=== PATIENT | male | born 1935 | race Caucasian/White ===

== ENCOUNTER 2021-10-06 10:38 | Inpatient (IN) ==
[2021-10-06 12:06] LABS: ABS Basophils 0.1 10^3/ul (0-0.2); ABS Eosinophils 0.2 10^3/ul (0-0.6); ABS Lymphocytes 1.5 10^3/ul (1.0-4.8); ABS Monocytes 0.6 10^3/ul (0-0.8); ABS Neutrophils 7.6 10^3/ul (1.5-7.7); Eosinophil % 2.3 %; Hematocrit 45 % (42-52); Hemoglobin 15.1 g/dL (14.0-18.0); Lymphocyte % 14.9 %; Mean Corpuscular HGB Conc 34 g/dL (31-36); Mean Corpuscular Hemoglobin 31 pg (27-31); Mean Corpuscular Volume 91 fL (80-94); Mean Platelet Volume 8.7 fL (7.4-10.4); Nucleated Red Blood Cells % 0.1; Platelet Count 316 10^3/uL (150-450); Red Blood Count 4.94 10^6 /uL (4.18-5.48); Red Cell Distribution Width 14 % (10-15); White Blood Count 9.9 10^3/uL (3.5-10.8)
[2021-10-06 12:23] LABS: ALT 8 U/L (7-52); AST 17 U/L (13-39); Albumin 4.1 g/dL (3.2-5.2); Albumin/Globulin Ratio 1.2 (1-3); Alkaline Phosphatase 63 U/L (35-149); Anion Gap 8 mmol/L (2-11); Blood Urea Nitrogen 19 mg/dL (6-24); CO2 Carbon Dioxide 29 mmol/L (22-32); Calcium 9.7 mg/dL (8.6-10.3); Chloride 100 mmol/L (101-111); Globulin 3.5 g/dL (2-4); Glucose 213 mg/dL (70-100); Magnesium 1.6 mg/dL (1.9-2.7); Sodium 137 mmol/L (135-145); Total Protein 7.6 g/dL (6.4-8.9); eGFR CKD-EPI 83.8 (>60)
[2021-10-06 12:28] LABS: Troponin I 0.03 ng/mL (<0.03)
[2021-10-06] MEDS ORDERED: NS 0.9% 1000 ml BAG 1,000 ML IV ONE (13:07)
[2021-10-06 13:27] LABS: Urine Appearance Clear; Urine Bilirubin Negative (Negative); Urine Blood Negative (Negative); Urine Color Yellow; Urine Glucose Negative (Negative); Urine Ketones Negative (Negative); Urine Nitrite Negative (Negative); Urine Protein 3+(>=500 mg/dL) (Negative); Urine Specific Gravity 1.019 (1.002-1.030); Urine Urobilinogen Negative (Negative)
[2021-10-06 13:33] LABS: Urine Bacteria Absent (Absent); Urine Granular Casts Present (Absent); Urine Red Blood Cell Trace(0-2/hpf) (Absent); Urine White Blood Cell Trace(0-5/hpf) (Absent)
[2021-10-06] MEDS ORDERED: Sodium Phosphate ADULT ENEMA 133 ML BTL PR ONE (13:55)
[2021-10-06] MEDS ORDERED: Polyethylene Glycol 3350 17 GM PACKET PO SCH (14:00)
[2021-10-06 16:27] LABS: Troponin I 0.04 ng/mL (<0.03)
[2021-10-06] MEDS ORDERED: Lidocaine 2% JELLY 10 ML JELLY TOPICAL ONE (17:13)
[2021-10-06 18:02] LABS: C Reactive Protein 1.15 mg/L (<8.01)
[2021-10-06] MEDS ORDERED: Magnesium Sulfate 2 gm BAG 2 GM/50 ML BAG IVPB ONE (18:03)
[2021-10-06] MEDS ORDERED: Dextrose 50% Syringe 50 ml 25 GM/50 ML SYRINGE IV PUSH PRN (18:06)
[2021-10-06] MEDS ORDERED: Lidocaine 2% JELLY 6 ML TOPICAL ONE (18:37)
[2021-10-06 18:41] LABS: Cholesterol 202 mg/dL; HDL Cholesterol 43.6 mg/dL; LDL Cholesterol 110 mg/dL; Triglycerides 244 mg/dL
[2021-10-06] MEDS ORDERED: Ondansetron 4 mg VIAL 2 MG/ML 2 ml VIAL IV PRN (18:49)
[2021-10-06 19:22] LABS: Troponin I 0.05 ng/mL (<0.03)
[2021-10-06] MEDS: Enoxaparin 40 MG/0.4 ML SYR SUBCUT SCH (19:35)
[2021-10-06 20:08] LABS: Rapid COVID-19 Molecular Undetected (Undetected)
[2021-10-07 02:44] LABS: Troponin I 0.06 ng/mL (<0.03)
[2021-10-07 03:09] LABS: Troponin I 0.04 ng/mL (<0.03)
[2021-10-07 05:54] LABS: ABS Basophils 0.1 10^3/ul (0-0.2); ABS Eosinophils 0.3 10^3/ul (0-0.6); ABS Lymphocytes 1.7 10^3/ul (1.0-4.8); ABS Monocytes 0.6 10^3/ul (0-0.8); ABS Neutrophils 6.6 10^3/ul (1.5-7.7); Eosinophil % 2.9 %; Hematocrit 41 % (42-52); Hemoglobin 14.1 g/dL (14.0-18.0); Lymphocyte % 18.8 %; Mean Corpuscular HGB Conc 34 g/dL (31-36); Mean Corpuscular Hemoglobin 31 pg (27-31); Mean Corpuscular Volume 90 fL (80-94); Mean Platelet Volume 8.7 fL (7.4-10.4); Platelet Count 271 10^3/uL (150-450); Red Blood Count 4.55 10^6 /uL (4.18-5.48); Red Cell Distribution Width 14 % (10-15); White Blood Count 9.2 10^3/uL (3.5-10.8)
[2021-10-07 06:13] LABS: Troponin I 0.04 ng/mL (<0.03)
[2021-10-07] MEDS: Psyllium PAK PO SCH (08:42)
[2021-10-07] MEDS: Polyethylene Glycol 3350 17 GM PACKET PO SCH (08:42)
[2021-10-07] MEDS: Enoxaparin 40 MG/0.4 ML SYR SUBCUT SCH (20:18)
[2021-10-08] MEDS: Polyethylene Glycol 3350 17 GM PACKET PO SCH (09:32)
[2021-10-08] MEDS: Psyllium PAK PO SCH (09:32)
[2021-10-08 12:09] VITALS: BP 136/63
[2021-10-08 15:25] LABS: Vitamin D Total 25(OH) 21.1 ng/mL (20-50)
== END 2021-10-08 16:20 | disposition home or self-care (01) | DRG 641 ==
LOC: ED 10:38 → SUATTDRO 18:49 → EDHOLD 19:21 → MEDTELE 10-07
PROVIDERS: ADMIT Internal Medicine; ATTEND Internal Medicine